=== PATIENT | male | born 1995 | race Caucasian/White ===

== ENCOUNTER 2019-03-05 04:37 | Emergency (ER) | payer OTHER ==
[~2019-03-05] VITALS: Ht 190.5 cm; Wt 68.0 kg
[2019-03-05] MEDS ORDERED: DUI500 PO (06:23)
[2019-03-05] MEDS ORDERED: KETO10TA2 PO (06:23)
== END 2019-03-05 06:38 | disposition home or self-care (01) ==
LOC: ER 04:37
DX: S01.02XA Laceration with foreign body of scalp, initial encounter (principal); S00.83XA Contusion of other part of head, initial encounter; Y08.89XA Assault by other specified means, initial encounter; W22.8XXA Striking against or struck by other objects, initial encounter; Y93.89 Activity, other specified; Y92.89 Other specified places as the place of occurrence of the external cause; Y99.8 Other external cause status